=== PATIENT | female | born 1975 | race Caucasian/White ===

== ENCOUNTER 2020-05-17 15:32 | Outpatient (CLI) | payer BC, SELFPAY ==
--- NOTE | ~2020-05-17 | US_ITS ---
EXAMINATION: US pelvic complete w TV DATE: 05/17/2020 16:27 INDICATION: Excessive and frequent menstruation TECHNIQUE: Multiple transabdominal and endovaginal sonographic images of the pelvis were obtained. COMPARISON: None. FINDINGS: The uterus measures 11.2 x 4.4 x 5.6 cm. The endometrial complex measures 9 mm. The right o vary measures 2.2 x 1.4 x 1.6 cm. The left ovary measures 4.1 x 2.4 x 3.2 cm. There is normal vascula r flow in the ovaries. There is no free fluid in the pelvis. IMPRESSION: 1. No sonographic correlate for the patient's symptoms. Reviewed, dictated and finalized at location A.
== END 2020-05-17 15:33 | disposition home or self-care (01) ==
PROVIDERS: PCP Family Medicine; Visit Provider Obstetrics & Gynecology
DX: N92.0 Excessive and frequent menstruation with regular cycle (principal)
CPT/HCPCS: 76830; 76856

== ENCOUNTER 2022-05-19 01:13 | Day surgery (SDC) | payer OTHER, SELFPAY ==
[2022-05-11 08:46] VITALS: BMI 33.0
--- NOTE | 2022-05-11 08:55 | PC.NURSE ---
Report to the Outpatient Waiting Room, entrance under the green pavilion located off [facility], at time _0600_ on date _[id number]_. OR Time: _0730_. Time changes happen often and if your time is changed the preop area will call you the afternoon before. - You and your visitor will be asked to self-screen and do not enter if you have any COVID symptoms. - Only one visitor and NO children visitors are allowed at this time. - The patient visitor is requested to leave or wait in car when not with patient due to restrictions. - A mask is required within the hospital. Patients may have clear liquids (water, carbonated beverages, clear teas, apple juice) until 3 hours prior to surgery with a maximum of 20 ounces. - No food from midnight until time of surgery Take the following medications with a SIP of water the morning of surgery: ___Alprazolam Medications to discontinue per physician Multivitamin Date to take last rdoi___[phone] Please no make-up, nail afghan, hairspray, perfume, deodorant, or body powder the day of surgery. No jewelry (including any body piercings) or valuables the day of surgery, leave them at home. Please take a shower or bath the night before, or the morning of, surgery with an antibacterial soap. Wear comfortable, loose fitting clothing. - Jewelry must be removed prior to entering the operating room. Rings and piercings that are not removed may be cut off. - The hospital will not accept responsibility for valuables. - Please leave all valuables, including medications, at home the day of surgery. If you are going home after surgery, a licensed class b driver must drive you home. - NO public transportation without another adult. - We recommend that an adult stay with you for 24 hours following discharge. - We also recommend that you do not drive, make important decision, drink alcoholic beverages, or take any drugs that were not prescribed by your health care provider for at least 24 hours after your discharge time. Follow any additional instructions given to you from your surgeon. If you or anyone in your household have experienced Covid symptoms in the past week, please notify your surgeon or the nurse liaison at the phone number below for possible testing. Telephone instructions given to _Patient____and asked if any additional questions and then verbalized understanding. Patient advised to call surgeon office or pre surgery nurse liaison [phone] if any additional questions.
--- NOTE | 2022-05-18 10:29 | PM.IMHP ---
H&P: HPI History of Present Illness Date/Time: 05/18/22 10:29 Chief Complaint: Abnormal uterine bleeding Narrative: Patient is a 46yo woman with history of abnormal uterine bleeding. Patient was doing well initially following Mirena IUD insertion in 09/2021, however, developed persistent bleeding and spotting within a few months. She also developed postcoital spotting and requested IUD removal in 01/2022. Following removal, patient reported persistence of abnormal bleeding that eventually subsided. Alternative management options were discussed and patient declined all other medical management options. Decision made to proceed with endometrial ablation as next step in management. In general, patient doing well today without complaints. Review of Systems Review of Systems: All systems reviewed & are unremarkable except as noted in HPI and below Constitutional: Constitutional: Reports as per HPI and Reports no additional constitutional complaints Eyes: Eyes: Reports as per HPI and Reports no additional eye complaints ENT: Reports system reviewed and no additional complaints, except as documented and Reports as per HPI Cardiovascular: Cardiovascular: Reports as per HPI and Reports no additional cardiovascular complaints Respiratory: Respiratory: Reports as per HPI and Reports no additional respiratory complaints Gastrointestinal: Gastrointestinal: Reports as per HPI and Reports no additional gastrointestinal complaints Genitourinary: Genitourinary: Reports no additional female genitourinary complaints and Reports as per HPI Musculoskeletal: Musculoskeletal: Reports no additional musculoskeletal complaints and Reports as per HPI Integumentary/Breasts: Skin/Breast: Reports system reviewed and no additional complaints, except as docu and Reports as per HPI Neurologic: Reports system reviewed and no additional complaints, except as documented and Reports as per HPI Psychiatric: Psychiatric: Reports no additional psychiatric complaints and Reports as per HPI Endocrine: Endocrine: Reports no additional endocrine complaints and Reports as per HPI Hematologic/Lymphatic: Hematologic/Lymphatic: Reports no additional hematologic/lymphatic complaints and Reports as per HPI Allergic/Immunologic: Allergic/Immunologic: Reports no additional allergic/immunologic complaints and Reports as per HPI PMFSH Past Medical History Medical History Hyperlipidemia Migraines Mitral valve disorder Seasonal allergies Unprotected sexual intercourse Surgical History Surgical History History of section History of tonsillectomy Hx of LASIK [place] teeth extracted Family History Family History Mother Breast cancer Diabetes mellitus Hypertension Father Hypertension Hyperlipidemia Grandparent Carcinoma of colon Hypertension Hyperlipidemia Social History Social History Social History: Smoking status: Never smoker Second hand tobacco smoke exposure: No Alcohol intake: never Substance use: never Substance use type: does not use Gender identity (if verbalized by the patient): Female Sexual Orientation (if Verbalized by the Patient): Straight or Heterosexual Spiritual care concerns: No Meds Home Medications and Allergies Home Medications Medication Instructions Recorded Confirmed Type fexofenadine 180 mg tablet 180 mg PO DAILY 04/23/20 05/11/22 History (Shara Allergy) psyllium husk (with sugar) 3.4 1 tbsp PO DAILY 04/23/20 05/11/22 History gram/12 gram oral powder (Metamucil (with sugar)) aspirin 81 mg tablet,delayed 81 mg PO DAILY 05/17/21 05/11/22 History release simvastatin 20 mg tablet 20 mg PO DAILY #90 tabs 03/31/22 05/11/22 Rx alprazolam 0.25 mg tablet 0.25 mg PO BID #60 tabs 05/04/22 05/11/22 Rx multivitami
[2022-05-19 06:04] VITALS: BP 121/74; PULSE 74; RESP 16; TEMP 36.1; O2SAT 100
[2022-05-19] MEDS: ACETAMINOPHEN 500 MG TABLET 1000 MG PO (06:21)
--- NOTE | 2022-05-19 06:48 | WPDANESEPPF ---
Anes - Initial Pre Proc Eval Procedure: Operation Date: 05/19/22 07:30 Proposed Procedures p Hysteroscopy Dilation and Curettage, Loreta Endometrial Ablation, Possible Myosure - Chloe Rao MD Date/Time: 05/19/22 06:48 Surgeon: Chloe Rao MD Pre Op Diagnosis: Menorrhagia Patient Data Age: 46 Gender: F Height: 1.78 m Weight: 109.1 kg Last Vital Signs Temp 36.1 C L 05/19/22 06:04 Pulse 74 05/19/22 06:04 Resp 16 05/19/22 06:04 BP 121/74 05/19/22 06:04 Pulse Ox 100 05/19/22 06:04 O2 Del Method Room Air 05/19/22 06:04 Allergies Allergy/AdvReac Type Severity Reaction Status Date / Time cephalexin AdvReac Mild Nausea Verified 05/19/22 06:16 Home Medications Medication Instructions Recorded Confirmed Type fexofenadine 180 mg tablet 180 mg PO DAILY 04/23/20 05/19/22 History (Shara Allergy) psyllium husk (with sugar) 3.4 1 tbsp PO DAILY 04/23/20 05/19/22 History gram/12 gram oral powder (Metamucil (with sugar)) aspirin 81 mg tablet,delayed 81 mg PO DAILY 05/17/21 05/19/22 History release simvastatin 20 mg tablet 20 mg PO DAILY #90 tabs 03/31/22 05/19/22 Rx alprazolam 0.25 mg tablet 0.25 mg PO BID #60 tabs 05/04/22 05/19/22 Rx multivitamin with minerals-folic 1 tablet PO DAILY 05/11/22 05/19/22 History acid 200 mcg chewable tablet (Multivitamin Gummies) Patient hx anesthesia problems: other (shaking) Family hx anesthesia problems: none Results Review: All pre-operative results and documents have been reviewed as part of the pre-operative evaluation. [facility] Past Medical History Medical History Anxiety Hyperlipidemia Migraines Mitral valve disorder DAX (obstructive sleep apnea) Seasonal allergies Surgical History Surgical History History of section History of tonsillectomy Hx of LASIK [place] teeth extracted Family History Family History Mother Breast cancer Diabetes mellitus Hypertension Father Hypertension Hyperlipidemia Grandparent Carcinoma of colon Hypertension Hyperlipidemia Social History Social History Social History: Smoking status: Never smoker Second hand tobacco smoke exposure: No Alcohol intake: never Substance use: never Substance use type: does not use Living arrangements: with family Gender identity (if verbalized by the patient): Female Sexual Orientation (if Verbalized by the Patient): Straight or Heterosexual Spiritual care concerns: No Anes - Eval Final PreProcedure Day of Procedure 05/19/22 06:48 Patient weight: obese Heart: regular rate and rhythm Lungs: clear to auscultation Airway: Mallampati scale class II Neurological: alert and oriented Last oral intake: >/= 8 hours ASA classification: III Emergent: no Anesthetic plan: proceed Anesthesia type and monitoring: general GIVS and standard monitoring Results Review: All pre-operative results and documents have been reviewed as part of the pre-operative evaluation. Informed Consent: The patient's anesthetic plan and its attendant risks and benefits were discussed with the patient/family/POA. Questions were solicited and answers provided to the satisfaction of the patient/family/POA.
[2022-05-19] MEDS: LACTATED RINGERS 1,000 ML 30 ML IV CONT (07:00)
--- NOTE | 2022-05-19 07:22 | WPDHPUPDATE1 ---
History and Physical Update Update Date/Time: 05/19/22 07:22 History and Physical has been reviewed, including an updated exam of the patient. There are NO changes in the patient's condition. Risks, benefits, and alternatives have been discussed and questions answered. Patient agrees to proceed with procedure.
[2022-05-19] MEDS: KETOROLAC 30 MG/ML VIAL (*BKC) IV PUSH (07:35)
[2022-05-19] MEDS: LIDOCAINE HCL 1% PF 30 ML VIAL 10 ML INFILTRATE (07:41)
[2022-05-19 08:14] VITALS: BP 96/65; PULSE 75; RESP 16; O2SAT 95
--- NOTE | 2022-05-19 08:19 | W.PM.PROC2 ---
Procedure Note - Detailed Date of Procedure 05/19/22 Pre-op Diagnosis Menorrhagia Post-op Diagnosis Same Procedure Performed Hysteroscopy, dilation and curettage, endometrial ablation with Loreta Surgeon Chloe Rao MD Anesthesia MAC Findings patient on menses, endometrial cavity obscured with blood, right tubal ostia visualized, unable to visualize left tubal ostia, rest of cavity that was visualized appeared within normal limits Description of Procedure The patient was taken to the operating room where she self-transferred to the operating room table. She was placed in dorsal supine position. Anesthesia was administered and found to be adequate. The patient was repositioned in dorsal lithotomy position with the use of Levy stirrups. She was prepped and draped in usual sterile fashion. A red rubber catheter was used to drain the bladder of 150 cc of clear urine. A bivalve speculum was inserted into the vagina. The cervix was well visualized. The anterior lip of the cervix was grasped with a single-tooth tenaculum. A paracervical block was performed with 1% plain lidocaine. 5 cc of lidocaine was administered on either side for a total of 10 cc. The cervix was serially dilated to accommodate a hysteroscope. The hysteroscope was introduced into the endometrial cavity. A general survey was performed.? A large amount of blood was noted to be obscuring endometrial cavity as patient currently on menses. Endometrial cavity was flushed as much as possible. Visualized areas of the cavity appeared to be within normal limits. Right tubal ostia was seen, however, left tubal ostia was not. A few pictures were taken. The hysteroscope was removed. A medium-size rigid curette was used to perform a curettage. All quadrants of the endometrial cavity were explored. A moderate amount of tissue was obtained and prepared to be sent to pathology for analysis.? The Loreta endometrial ablation device was then opened on the sterile field. The appropriate settings were input on the hand-held device and the array was introduced into the endometrial cavity and deployed. The cervical balloon was insufflated.? An integrity check was completed and passed by the Loreta console. After the integrity check was passed successfully, the ablation procedure started automatically and ran for the preset time of 120 seconds. After completion of the ablation procedure, the array was collapsed and the cervical balloon was desufflated. The device was removed.? The tenaculum was removed from the anterior lip of the cervix. Minimal oozing from one of the tenaculum puncture sites was noted. This area was made hemostatic with silver nitrate. The remainder of the vagina was cleansed and dried and the speculum was removed. The patient was cleansed and dried and taken out of the dorsal lithotomy position. She was awakened from anesthesia without difficulty and transferred to the recovery room in stable condition.? The patient tolerated the procedure well.? All sponge, lap, and instrument counts were correct at the end of the procedure. Estimated Blood Loss 3 IV Fluids 700 Urine Output 150 Drains No Packing No Pathology Yes (endometrial curettings) Complications No immediate complications Condition Stable Disposition Same day [facility] Billing Surgery - Charge Forward: Surgery Billing
[2022-05-19 08:40] VITALS: BP 106/63; PULSE 65; RESP 16; O2SAT 99
[2022-05-19 09:10] VITALS: BP 118/77; PULSE 66; RESP 16
== END 2022-05-19 09:20 | disposition home or self-care (01) ==
PROVIDERS: PCP Family Medicine; Visit Provider Student in an Organized Health Care Education/Training Program
PROC: 0U5B8ZZ Destruction of Endometrium, Via Natural or Artificial Opening Endoscopic (ICD-10-PCS; CPT 58563; principal; 2022-05-19 07:30)
DX: N93.9 Abnormal uterine and vaginal bleeding, unspecified (principal); E78.5 Hyperlipidemia, unspecified
CPT/HCPCS: 58563; 88305; A9270; J1100; J1885; J2250; J2405; J2704; J3010; J7030; J7120

== ENCOUNTER 2022-07-03 16:17 | Outpatient (CLI) | payer OTHER, SELFPAY ==
--- NOTE | ~2022-07-03 | XR_ITS ---
XR shoulder LT min 2V DATE: 07/03/2022 17:28 INDICATION: Left shoulder pain for 2 months TECHNIQUE: 4 views COMPARISON: None FINDINGS: No fracture or dislocation, periosteal reaction or bone destruction or abnormal soft tissue calcification. Normal alignment at the acromioclavicular and glenohumeral joints. IMPRESSION: Negative Reviewed, dictated and finalized at location A. [facility] VERIFICATION SPECIALIST IMPRESSION: Negative
== END 2022-07-03 16:18 | disposition home or self-care (01) ==
PROVIDERS: PCP Family Medicine; Visit Provider Nurse Practitioner Gerontology
DX: M25.512 Pain in left shoulder (principal)
CPT/HCPCS: 73030

== ENCOUNTER 2023-04-20 02:34 | Day surgery (SDC) | payer OTHER, SELFPAY ==
[2023-04-04 13:48] VITALS: BMI 34.4
[2023-04-20 06:58] VITALS: BP 124/83; PULSE 85; RESP 18; TEMP 36.3; O2SAT 98; BMI 35.3
[2023-04-20] MEDS: LACTATED RINGERS 1,000 ML 150 ML IV CONT (07:01)
--- NOTE | 2023-04-20 07:32 | PM.HPGS ---
History of Present Illness History of Present Illness Consent: Risks, benefits, and alternatives have been discussed and questions answered. Patient agrees to proceed with procedure. Chief complaint: neoplasm screening Narrative: Judy Brody is a 47 year old female Presents for screening colonoscopy. Patient's current weight appetite and bowel movements are normal. Patient denies abdominal pain. She has had no bleeding. She does note occasional soft stools over last 2 months. She denies any bleeding. Family history is noncontributory. No first-degree relatives have polyps or cancer of the colon. Review of Systems Review of Systems: Review of systems noncontributory. [facility] Past Medical History Medical History Anxiety Hyperlipidemia Migraines Mitral valve disorder DAX (obstructive sleep apnea) Seasonal allergies Surgical History Surgical History History of section History of dilation and curettage History of endometrial ablation History of hysteroscopy History of tonsillectomy Hx of LASIK [place] teeth extracted Family History Family History Mother Breast cancer Diabetes mellitus Hypertension Father Hypertension Hyperlipidemia Grandparent Carcinoma of colon Hypertension Hyperlipidemia Social History Social History (Updated 03/16/23 @ 08:32 by Adia Covarrubias MA) Social History: Smoking status: Never smoker Second hand tobacco smoke exposure: No Alcohol intake: never Substance use: never Substance use type: does not use Lack of Transportation: No Lack of Food: Never True Current Housing: I Have Housing Concerned About Future Housing: No Difficulty Paying Gas/Electric Bills: No Difficulty Paying for Meds: No Currently Unemployed: No Education: Master's Degree or Higher Difficulty w/ Childcare or Family Care: No Living arrangements: with family Occupation/Education: occupation Gender identity (if verbalized by the patient): Female Sexual Orientation (if Verbalized by the Patient): Straight or Heterosexual Spiritual care concerns: No Meds Home Medications and Allergies Home Medications Medication Instructions Recorded Confirmed Type fexofenadine 180 mg tablet 180 mg PO DAILY 04/23/20 04/20/23 History (Shara Allergy) aspirin 81 mg tablet,delayed 81 mg PO DAILY 05/17/21 04/20/23 History release multivitamin with minerals-folic 1 tablet PO DAILY 05/11/22 04/20/23 History acid 200 mcg chewable tablet (Multivitamin Gummies) alprazolam 0.25 mg tablet 0.25 mg PO DAILY PRN anxiety #30 01/17/23 04/20/23 Rx tabs simvastatin 20 mg tablet See Rx Instructions .Route 03/07/23 04/20/23 Rx .COMPLEX #90 tabs Allergies Allergy/AdvReac Type Severity Reaction Status Date / Time cephalexin AdvReac Mild Nausea Verified 04/20/23 06:57 Vital Signs Vital Signs - 24 hr 04/20/23 06:58 Temperature 97.3 F L Pulse Rate 85 Respiratory Rate 18 Blood Pressure 124/83 Pulse Oximetry 98 Oxygen Delivery Room Air Exam Narrative: Physical exam reveals patient to be alert. Vital signs stable. HEENT exam is unremarkable. Patient is anicteric. Lungs are clear to auscultation and percussion. Heart is without murmur or extra sounds. Abdomen bowel sounds are present soft nontender with no organomegaly. Digital external rectal exam is normal. Assessment and Plan Assessment and plan (1) Colon cancer screening: Code(s): Z12.11 - Encounter for screening for malignant neoplasm of colon Status: Acute Assessment and Plan: Patient presents for screening colonoscopy. She appears to be at average risk for colon polyps. Because of intermittent loose stools recommend fiber supplementation such as Metamucil daily.
--- NOTE | 2023-04-20 07:38 | WPDANESEPPF ---
Anes - Initial Pre Proc Eval Procedure: Operation Date: 04/20/23 08:00 Proposed Procedures p Screening Colonoscopy - Harjinder Gregory MD Date/Time: 04/20/23 07:38 Surgeon: Harjinder Gregory MD Pre Op Diagnosis: neoplasm screening Patient Data Age: 47 Gender: F Height: 1.78 m Weight: 111.6 kg Last Vital Signs Temp 97.3 F L 04/20/23 06:58 Pulse 85 04/20/23 06:58 Resp 18 04/20/23 06:58 BP 124/83 04/20/23 06:58 Pulse Ox 98 04/20/23 06:58 O2 Del Method Room Air 04/20/23 06:58 Allergies Allergy/AdvReac Type Severity Reaction Status Date / Time cephalexin AdvReac Mild Nausea Verified 04/20/23 06:57 Home Medications Medication Instructions Recorded Confirmed Type fexofenadine 180 mg tablet 180 mg PO DAILY 04/23/20 04/20/23 History (Shara Allergy) aspirin 81 mg tablet,delayed 81 mg PO DAILY 05/17/21 04/20/23 History release multivitamin with minerals-folic 1 tablet PO DAILY 05/11/22 04/20/23 History acid 200 mcg chewable tablet (Multivitamin Gummies) alprazolam 0.25 mg tablet 0.25 mg PO DAILY PRN anxiety #30 01/17/23 04/20/23 Rx tabs simvastatin 20 mg tablet See Rx Instructions .Route 03/07/23 04/20/23 Rx .COMPLEX #90 tabs Patient hx anesthesia problems: none Family hx anesthesia problems: none Results Review: All pre-operative results and documents have been reviewed as part of the pre-operative evaluation. [facility] Past Medical History Medical History Anxiety Hyperlipidemia Migraines Mitral valve disorder DAX (obstructive sleep apnea) Seasonal allergies Surgical History Surgical History History of section History of dilation and curettage History of endometrial ablation History of hysteroscopy History of tonsillectomy Hx of LASIK [place] teeth extracted Family History Family History Mother Breast cancer Diabetes mellitus Hypertension Father Hypertension Hyperlipidemia Grandparent Carcinoma of colon Hypertension Hyperlipidemia Social History Social History (Updated 03/16/23 @ 08:32 by Adia Covarrubias MA) Social History: Smoking status: Never smoker Second hand tobacco smoke exposure: No Alcohol intake: never Substance use: never Substance use type: does not use Lack of Transportation: No Lack of Food: Never True Current Housing: I Have Housing Concerned About Future Housing: No Difficulty Paying Gas/Electric Bills: No Difficulty Paying for Meds: No Currently Unemployed: No Education: Master's Degree or Higher Difficulty w/ Childcare or Family Care: No Living arrangements: with family Occupation/Education: occupation Gender identity (if verbalized by the patient): Female Sexual Orientation (if Verbalized by the Patient): Straight or Heterosexual Spiritual care concerns: No Anes - Eval Final PreProcedure Day of Procedure 04/20/23 07:38 Patient weight: obese Heart: regular rate and rhythm Lungs: clear to auscultation Airway: Mallampati scale class II Neurological: alert and oriented Last oral intake: >/= 8 hours ASA classification: II Emergent: no Anesthetic plan: proceed Anesthesia type and monitoring: general GIVS and standard monitoring Results Review: All pre-operative results and documents have been reviewed as part of the pre-operative evaluation. Informed Consent: The patient's anesthetic plan and its attendant risks and benefits were discussed with the patient/family/POA. Questions were solicited and answers provided to the satisfaction of the patient/family/POA.
[2023-04-20 08:21] VITALS: BP 83/31; PULSE 73; RESP 18; O2SAT 100
[2023-04-20 08:31] VITALS: BP 105/58; PULSE 74; RESP 18; O2SAT 99
[2023-04-20 08:41] VITALS: BP 107/51; PULSE 68; RESP 18; O2SAT 97
== END 2023-04-20 08:49 | disposition home or self-care (01) ==
PROVIDERS: PCP Family Medicine; Visit Provider Internal Medicine Gastroenterology
PROC: 0DJD8ZZ Inspection of Lower Intestinal Tract, Via Natural or Artificial Opening Endoscopic (ICD-10-PCS; CPT 45378; principal; 2023-04-20 08:00)
DX: Z12.11 Encounter for screening for malignant neoplasm of colon (principal); K64.8 Other hemorrhoids; E78.5 Hyperlipidemia, unspecified; G47.33 Obstructive sleep apnea (adult) (pediatric); F41.9 Anxiety disorder, unspecified; Z79.82 Long term (current) use of aspirin; E66.9 Obesity, unspecified; Z68.35 Body mass index [BMI] 35.0-35.9, adult
CPT/HCPCS: 45378; J2704; J7120

== ENCOUNTER 2023-05-15 08:00 | Outpatient (CLI) | payer OTHER, SELFPAY ==
--- NOTE | 2023-05-15 08:14 | ECG_ITS ---
Measurements Intervals [place] Rate: 78 P: 45 VT: 197 QRS: 60 QRSD: 112 T: 38 QT: 371 QTc: 424 Interpretive Statements SINUS RHYTHM MODERATE INTRAVENTRICULAR CONDUCTION DELAY [110+ ms QRS DURATION] NO PREVIOUS ECG AVAILABLE FOR COMPARISON Electronically Signed On 05-15-2023 12:35:57 CDT by Elham Weaver M.D.
== END 2023-05-15 08:01 | disposition home or self-care (01) ==
LOC: ANHSURGERY 08:05
PROVIDERS: PCP Family Medicine; Visit Provider Obstetrics & Gynecology
DX: N92.0 Excessive and frequent menstruation with regular cycle (principal); E78.5 Hyperlipidemia, unspecified; Z01.818 Encounter for other preprocedural examination; I45.9 Conduction disorder, unspecified
CPT/HCPCS: 36415; 86850; 86900; 86901; 93005

== ENCOUNTER 2023-05-18 00:41 | Day surgery (SDC) | payer OTHER, SELFPAY ==
[2023-05-09 10:23] VITALS: BMI 34.4
--- NOTE | 2023-05-09 10:24 | PC.NURSE ---
Report to the Outpatient Waiting Room, entrance under the green pavilion located off [facility], at time _0600_ on date _[id number]_. Planned Procedure Time: _0730_. Time changes happen often and if your time is changed the preop area will call you the afternoon before. - You and your visitor will be asked to self-screen and do not enter if you have any COVID symptoms. - A mask is optional within the hospital at this time. Patients may have clear liquids (water, carbonated beverages, clear teas, apple juice) until 3 hours prior to surgery with a maximum of 20 ounces. - No food from midnight until time of surgery Take the following medications with a SIP of water the morning of surgery: __Xanax if needed. DO NOT STOP ANY OF YOUR OTHER PRESCRIPTION MEDICATIONS PRIOR TO SURGERY ?EXCEPT THE FOLLOWING Medications to discontinue per physician Multivitamin Date to take last xflv__[id number] Patient stopped Aspirin 05-07-2023 Please no make-up, nail turkish, hairspray, perfume, deodorant, or body powder the day of surgery. No jewelry (including any body piercings) or valuables the day of surgery, leave them at home. Please take a shower or bath the night before, or the morning of, surgery with an antibacterial soap. Wear comfortable, loose fitting clothing. - Jewelry must be removed prior to entering the operating room. Rings and piercings that are not removed may be cut off. - The hospital will not accept responsibility for valuables. - Please leave all valuables, including medications, at home the day of surgery. If you are going home after surgery, a licensed bull driver must drive you home. - NO public transportation without another adult if you receive anesthesia. - We recommend that an adult stay with you for 24 hours following discharge. - We also recommend that you do not drive, make important decision, drink alcoholic beverages, or take any drugs that were not prescribed by your health care provider for at least 24 hours after your discharge time. Follow any additional instructions given to you from your surgeon. If you or anyone in your household have experienced Covid symptoms in the past week, please notify your surgeon or the nurse liaison at the phone number below for possible testing. Telephone instructions given to _Patient__and asked if any additional questions and then verbalized understanding. Patient advised to call surgeon office or pre surgery nurse liaison [phone] if any additional questions.
--- NOTE | 2023-05-17 18:39 | PM.IMHP ---
H&P: HPI History of Present Illness Date/Time: 05/17/23 18:39 Chief Complaint: Abnormal bleeding Narrative: She has a history of menorrhagia since 2019. She has tried IUD and had irregular and postcoital bleeding. IUD was removed and she then had endometrial ablation. The endometrial currettage at that time was benign. She has continued to have abnormal vaginal bleeding especially post coital bleeding. She does not want to do any hormonal options. She wants definitive treatment with hysterectomy. She does not have any significant perimenopausal symptoms. Review of Systems Review of Systems: All systems reviewed & are unremarkable except as noted in HPI and below Cardiovascular: Cardiovascular: Reports no additional cardiovascular complaints, Denies chest pain and Denies dyspnea Respiratory: Respiratory: Reports no additional respiratory complaints and Denies dyspnea Gastrointestinal: Gastrointestinal: Reports abdominal pain, Denies change in bowel habits, Denies diarrhea, Denies nausea and Denies vomiting Genitourinary: Genitourinary: Reports pelvic pain Musculoskeletal: Musculoskeletal: Reports back pain Integumentary/Breasts: Skin/Breast: Reports system reviewed and no additional complaints, except as docu Neurologic: Reports system reviewed and no additional complaints, except as documented PMFSH Past Medical History Medical History Anxiety Hyperlipidemia Migraines Mitral valve disorder DAX (obstructive sleep apnea) Seasonal allergies Surgical History Surgical History History of section History of dilation and curettage History of endometrial ablation History of hysteroscopy History of tonsillectomy Hx of LASIK Cl[place] teeth extracted Family History Family History Mother Breast cancer Diabetes mellitus Hypertension Father Hypertension Hyperlipidemia Grandparent Carcinoma of colon Hypertension Hyperlipidemia Social History Social History Social History: Smoking status: Never smoker Second hand tobacco smoke exposure: No Alcohol intake: never Substance use: never Substance use type: does not use Lack of Transportation: No Lack of Food: Never True Current Housing: I Have Housing Concerned About Future Housing: No Difficulty Paying Gas/Electric Bills: No Difficulty Paying for Meds: No Currently Unemployed: No Education: Master's Degree or Higher Difficulty w/ Childcare or Family Care: No Living arrangements: with family Occupation/Education: occupation Gender identity (if verbalized by the patient): Female Sexual Orientation (if Verbalized by the Patient): Straight or Heterosexual Spiritual care concerns: No Meds Home Medications and Allergies Home Medications Medication Instructions Recorded Confirmed Type fexofenadine 180 mg tablet 180 mg PO DAILY 04/23/20 05/16/23 History (Shara Allergy) aspirin 81 mg tablet,delayed 81 mg PO DAILY 05/17/21 05/16/23 History release multivitamin with minerals-folic 1 tablet PO DAILY 05/11/22 05/16/23 History acid 200 mcg chewable tablet (Multivitamin Gummies) alprazolam 0.25 mg tablet 0.25 mg PO DAILY PRN anxiety #30 01/17/23 05/16/23 Rx tabs simvastatin 20 mg tablet See Rx Instructions .Route 03/07/23 05/16/23 Rx .COMPLEX #90 tabs metronidazole 1.3 % (65 mg/5 gram) 1 appful vaginal QHS 1 dose #5 05/08/23 05/09/23 Rx vaginal gel (Nuvessa) grams psyllium 1 packet PO HS 05/09/23 05/09/23 History Allergies Allergy/AdvReac Type Severity Reaction Status Date / Time cephalexin AdvReac Mild Nausea Verified 05/09/23 10:16 Exam Const: Orientation/consciousness: oriented to person and oriented to place HENMT: Head: normal to inspection
[2023-05-18] VITALS (13 sets, daily range): BP systolic 105–135; BP diastolic 51–83; PULSE 70–98; RESP 10–48; TEMP 36.6–37.1; O2SAT 97–99
--- NOTE | 2023-05-18 06:48 | WPDANESEPPF ---
Anes - Initial Pre Proc Eval Procedure: Operation Date: 05/18/23 07:30 Proposed Procedures p Robotic Laparoscopic Total Vaginal Hysterectomy with Bilateral Salpingectomy - Campbell Dickinson MD Date/Time: 05/18/23 06:48 Surgeon: Campbell Dickinson MD Pre Op Diagnosis: abnormal uterine bleeding Patient Data Age: 47 Gender: F Height: 1.78 m Weight: 109 kg Allergies Allergy/AdvReac Type Severity Reaction Status Date / Time cephalexin AdvReac Mild Nausea Verified 05/09/23 10:16 Home Medications Medication Instructions Recorded Confirmed Type fexofenadine 180 mg tablet 180 mg PO DAILY 04/23/20 05/16/23 History (Shara Allergy) aspirin 81 mg tablet,delayed 81 mg PO DAILY 05/17/21 05/16/23 History release multivitamin with minerals-folic 1 tablet PO DAILY 05/11/22 05/16/23 History acid 200 mcg chewable tablet (Multivitamin Gummies) alprazolam 0.25 mg tablet 0.25 mg PO DAILY PRN anxiety #30 01/17/23 05/16/23 Rx tabs simvastatin 20 mg tablet See Rx Instructions .Route 03/07/23 05/16/23 Rx .COMPLEX #90 tabs metronidazole 1.3 % (65 mg/5 gram) 1 appful vaginal QHS 1 dose #5 05/08/23 05/09/23 Rx vaginal gel (Nuvessa) grams psyllium 1 packet PO HS 05/09/23 05/09/23 History Patient hx anesthesia problems: none Family hx anesthesia problems: none Results Review: All pre-operative results and documents have been reviewed as part of the pre-operative evaluation. [facility] Past Medical History Medical History Anxiety Hyperlipidemia Migraines Mitral valve disorder DAX (obstructive sleep apnea) Seasonal allergies Surgical History Surgical History History of section History of dilation and curettage History of endometrial ablation History of hysteroscopy History of tonsillectomy Hx of LASIK Horner teeth extracted Family History Family History Mother Breast cancer Diabetes mellitus Hypertension Father Hypertension Hyperlipidemia Grandparent Carcinoma of colon Hypertension Hyperlipidemia Social History Social History Social History: Smoking status: Never smoker Second hand tobacco smoke exposure: No Alcohol intake: never Substance use: never Substance use type: does not use Lack of Transportation: No Lack of Food: Never True Current Housing: I Have Housing Concerned About Future Housing: No Difficulty Paying Gas/Electric Bills: No Difficulty Paying for Meds: No Currently Unemployed: No Education: Master's Degree or Higher Difficulty w/ Childcare or Family Care: No Living arrangements: with family Occupation/Education: occupation Gender identity (if verbalized by the patient): Female Sexual Orientation (if Verbalized by the Patient): Straight or Heterosexual Spiritual care concerns: No Anes - Eval Final PreProcedure Day of Procedure 05/18/23 06:48 Patient weight: obese Heart: regular rate and rhythm Lungs: clear to auscultation Airway: Mallampati scale class II Neurological: alert and oriented Last oral intake: >/= 8 hours ASA classification: III Emergent: no Anesthetic plan: proceed Anesthesia type and monitoring: general ETT and standard monitoring Results Review: All pre-operative results and documents have been reviewed as part of the pre-operative evaluation. Informed Consent: The patient's anesthetic plan and its attendant risks and benefits were discussed with the patient/family/POA. Questions were solicited and answers provided to the satisfaction of the patient/family/POA.
[2023-05-18] MEDS: LACTATED RINGERS 1,000 ML 30 ML IV CONT ×2 (07:00→10:30)
[2023-05-18] MEDS: ACETAMINOPHEN 500 MG TABLET 1000 MG PO (07:00)
[2023-05-18] MEDS: SCOPOLAMINE 1.5 MG PATCH TRANSDERM (07:00)
[2023-05-18] MEDS: KETOROLAC 15 MG/ML VIAL (*BKC) IV PUSH (07:00)
--- NOTE | 2023-05-18 07:25 | WPDHPUPDATE1 ---
History and Physical Update Update Date/Time: 05/18/23 07:25 History and Physical has been reviewed, including an updated exam of the patient. There are NO changes in the patient's condition. Risks, benefits, and alternatives have been discussed and questions answered. Patient agrees to proceed with procedure.
[2023-05-18] MEDS: metroNIDAZOLE 500 MG/ISO 100ML 500 MG/100 ML BAG 100 MG IVPB (07:32)
[2023-05-18] MEDS: ceFAZolin 2 GM/D5W 50 ML 2 GM/50 ML BAG IVPB (07:32)
[2023-05-18] MEDS: BUPivacaine HCL 0.5% 10 ML AMP 20 ML INFILTRATE (08:27)
--- NOTE | 2023-05-18 10:22 | PM.OP ---
Procedure Note - Brief Procedure Note - Brief Date of procedure: 05/18/23 abnormal uterine bleeding Post-op diagnosis: Same Procedure performed: 1. Laparoscopic robotic assisted total vaginal hysterectomy with bilateral salpingectomy. 2. Lysis of adhesions 3. Cystoscopy Surgeon: Campbell Dickinson MD Anesthesia: GETA Findings: Normal retroverted uterus, normal ovaries bilateral, small corpus luteum cyst on the right ovary, adhesions of the left ovary to bra[place] intestinal fat, normal bladder, efflux noted bilateral from ureteral orifi Estimated blood loss (mL): 50 Urine output (mL): 300 Drains: No Packing: No Pathology: Yes (uterus with cervix, right and left fallopian tube) Complications: No immediate complications Condition: Stable Disposition: PACU
--- NOTE | 2023-05-18 10:25 | W.PM.PROC2 ---
Procedure Note - Detailed Date of Procedure 05/18/23 Pre-op Diagnosis abnormal uterine bleeding Post-op Diagnosis Same Procedure Performed 1. Laparoscopic robotic assisted total hysterectomy with bilateral salpingectomy 2. Lysis of adhesions 3. Cystoscopy Surgeon Campbell Dickinson MD Anesthesia General Indications Long history of menometrorrhagia resistant to endometrial ablation she requests definitive treatment with hysterectomy Findings Uterus sound to 8 cm scarring palpated consistent with prior ablation, uterus normal size ovaries were normal bilaterally small corpus luteum cyst on the right side normal fallopian tubes bilaterally there was some scarring of the left ovary to the left pelvic sidewall and bra[place] intestinal fat which adhesions were lysed to assure mobility of the left ovary otherwise the ovary was normal. Normal right ovary. Cystoscopy normal there was jetting from both ureteral orifi. Description of Procedure After informed consent was obtained she was taken to the operating room and general endotracheal anesthesia was administered. She was placed in low lithotomy position. An exam under anesthesia was performed. Uterus normal size retroverted, no adnexal masses palpated. She was and prepped and draped in sterile fashion. Varner catheter placed in bladder. Attention was turned to the vagina speculum was inserted. Single-tooth tenaculum placed on anterior lip of the cervix the uterus sounded to 8 cm. The cervix was dilated to a 8 Frias dilator. A size 6 uterine manipulator was eventually secured. Did have to try several dilators due to the manipulator not being able to fit completely into the uterine cavity. The cervix was noted to be long but the uterine cavity was scarred. A size 3.5 colp cup was secured in the vagina. Then attention was turned to the abdomen with new sterile gloves. .5% marcaine injected subcutaneously. An incision was made horizontal 2 cm above the umbilicus. A Veress needle was inserted into the abdomen confirmation into the abdomen was obtained with normal free flow of fluid and normal peritoneal pressure. A Pneumoperitoneum of 15 mm per mercury was obtained. No abdominal or pelvic adhesions noted. A small incision was made approximately 8 cm lateral to the port on the left side of the port. A size 8mm robotic port was inserted under laparoscopic visualization into the abdomen on the left side. Attention was turned to the right side of the abdomen an incision was made and another 8 mm robotic port was inserted under laparoscopic visualization. Superior and medial to this an incision was made and the construction management assistant port 10 mm was inserted under laparoscopic visualization. Prior to making each incision 0.5% Marcaine was injected subcutaneously. Patient was placed in Trendelenburg position to allow for the intestinal tissue to come up out of the cul-de-sac adequately. After this was done then the manipulator of the uterus had to be changed and once this was done to allow for manipulation of the uterus then the robotic arms were attached. Attention was turned to the surgery consult. Attention was turned to the right round ligament which was ligated with vessel sealer. The anterior leaf of the broad ligament on the right was dissected anteriorly dissecting the vesicouterine peritoneum dissecting the bladder from the lower uterine segment. The right side of the bladder was dissected from the lower uterine segment and upper cervix. The right ovarian ligament was ligated with the vessel sealer. The a posterior leaf of the broad ligament was further dissected. The ascending uterine vessels were ligated. The uterine artery were ligated. Attention was turned to the left round ligament which was somewhat adhesed to the left fallopian tube and the left fallopian tube had some adhesions to the left ovary. The left ovary distally was adhesed to the left sidewall and also some adhesions to braed[place] intestinal adipose tissue. T
--- NOTE | 2023-05-18 10:26 | PM.DS ---
DS: Admitting Diagnosis Discharge Date 05/19/23 Admitting Diagnosis Menorrhagia DS: Discharge Diagnosis Discharge Diagnosis Plan Status post hysterectomy DS: Summary Hospital Course Reason for hospitalization: Scheduled laparoscopic robotic assisted hysterectomy. Hospital Course: She was admitted for robotic laparoscopic hysterectomy she underwent an uncomplicated total vaginal hysterectomy and bilateral salpingectomy. Postoperatively she did well. She had adequate pain control. She was ambulating and tolerating regular food. Status at Discharge Functional status at discharge: independent ambulation Time Spent with Patient Time attestation: Total time spent providing and/or coordinating discharge services: Exam Const: General: comfortable Eyes: General: appearance normal, both eyes and all related structures Resp: Effort & Inspection: normal respiratory effort GI: Other: Incisions intact. Appropriate tenderness. Skin: General skin exam: normal color Neuro: General: oriented to person, oriented to place and oriented to time Extrem: General: normal to inspection and no calf tenderness DS: Data Data Completed and Pending Pending studies at discharge: Pending at discharge 05/18/23 09:47 Surgical [PTH] Routine Discharge Plan Discharge Patient Disposition: Home, Self-Care Discharge Instructions: Ok to shower; keep incisions open to air. No heavy lifting >10 lbs for 6 weeks. Nothing in the vagina for 6 weeks. Patient Instructions: Laparoscopic Hysterectomy (DC) Stand Alone Forms: General Discharge Instructions Follow-up/Referrals: Campbell Dickinson MD [Physician] - Keep Reg. Scheduled Appt. Discharge Medications: New hydrocodone-acetaminophen 5-325 mg Tablet 1 tablet PO Q3H PRN (Reason: Pain Rated 5 Or greater) Qty: 20 0RF docusate sodium [Colace] 100 mg capsule 100 mg PO BID Qty: 120 0RF ondansetron 4 mg tablet,disintegrating 4 mg PO Q6H PRN (Reason: nausea and vomiting) Qty: 20 0RF Continued aspirin 81 mg tablet,delayed release (DR/EC) 81 mg PO DAILY alprazolam 0.25 mg tablet 0.25 mg PO DAILY PRN (Reason: anxiety) Qty: 30 0RF fexofenadine [Shara Allergy] 180 mg tablet 180 mg PO DAILY Metamucil Packet 1 packet PO HS Rx Instructions: mix into at least 8 oz of water or juice before administering Multivitamin Gummies 200 mcg Tablet,Chewable 1 tablet PO DAILY simvastatin 20 mg tablet See Rx Instructions .ROUTE .COMPLEX Qty: 90 1RF Dose Instruction: TAKE 1 TABLET BY MOUTH DAILY Rx Instructions: TAKE 1 TABLET BY MOUTH DAILY Discontinued Nuvessa 1.3 % (65 mg/5 gram) gel 1 appful vaginal QHS Qty: 5 0RF No Action Digestive Advantage Prob Gummy 250 million cell tablet,chewable PO
[2023-05-18] MEDS: ONDANSETRON INJ 4 MG/2 ML VIAL IV PUSH (11:54)
--- NOTE | 2023-05-18 12:05 | SUR.PHASEI ---
1145 - pt continues to c/o pressure in bladder.
[2023-05-18] MEDS: fentaNYL CITRATE INJ (*CRX) 100 MCG/2 ML VIAL 25 MCG IV PUSH (12:12)
--- NOTE | 2023-05-18 12:37 | SUR.PHASEI ---
1200 bladder scanned., empty. Fentanyl given for pain.
[2023-05-18] MEDS: KETOROLAC 30 MG/ML VIAL (*BKC) IV PUSH (13:26)
[2023-05-18] MEDS: SODIUM CHLORIDE 0.9% IV 1,000 ML 125 ML IV CONT (13:27)
--- NOTE | 2023-05-18 14:04 | ADMGEN ---
1235-This patient, Judy Brody, was admitted to OB 2nd Floor Room 292-00. Patient/family oriented to hospital policies and general routines including ID bracelet, bed and alarms, visiting hours, pain management, procedures, bathroom and other care routines, personal items, smoking policy, room service/diet, and visiting hours. Information on how to activate the Rapid Response Team has been discussed. Patient/Family are encouraged to report perceived risks to care and to ask questions if they do not understand what they are told or what they should do.
--- NOTE | 2023-05-18 14:33 | PM.GYNPNOP ---
UNDERGROUND MINING SECTION FOREMAN - A/P Postoperative Procedures: Procedures Operation Date: 05/18/23 07:30 Actual Procedure Side Surgeon p Robotic Laparoscopic Total Vaginal Hysterectomy with Bilateral Salpingectomy Bilateral Campbell Dickinson MD Time Spent With Patient Time: Total time spent is greater than 50% in coordination of care (as documented) at patient's floor/unit and/or counseling patient: Time with patient: less than 15 minutes UNDERGROUND MINING SECTION FOREMAN- PN:Subj Post-Op Subjective Date/time seen: 05/18/23 14:33 Interval history: She is resting well, discussed her surgery with her, vitals stable, she is comfortable, mild nausea. Will add Reglan. She is aware Dr. Ewing will see her tomorrow. UNDERGROUND MINING SECTION FOREMAN - PN: Obj Data Vital Signs Vital Signs: Vital Signs - 24 hr 05/18/23 07:24 05/18/23 10:30 05/18/23 10:45 Temperature 98.3 F 98.1 F Pulse Rate 98 87 87 Respiratory Rate 14 10 L 16 Blood Pressure 135/83 105/67 108/61 Pulse Oximetry 98 99 99 Oxygen Delivery Room Air Simple Face Mask Simple Face Mask Oxygen Flow Rate 7 5 05/18/23 11:00 05/18/23 11:15 05/18/23 11:30 Temperature Pulse Rate 78 73 76 Respiratory Rate 16 16 16 Blood Pressure 109/62 110/61 126/51 L Pulse Oximetry 99 99 99 Oxygen Delivery Simple Face Mask Simple Face Mask Room Air Oxygen Flow Rate 5 5 05/18/23 11:45 05/18/23 12:00 05/18/23 12:15 Temperature Pulse Rate 75 73 70 Respiratory Rate 16 16 16 Blood Pressure 116/68 127/72 130/71 Pulse Oximetry 97 97 97 Oxygen Delivery Room Air Room Air Room Air Oxygen Flow Rate 05/18/23 12:37 05/18/23 13:00 Temperature 98 F Pulse Rate 74 74 Respiratory Rate 16 16 Blood Pressure 109/53 L Pulse Oximetry 98 98 Oxygen Delivery Room Air Oxygen Flow Rate Intake/Output Intake/Output: Intake & Output 05/15/23 05/16/23 05/17/23 05/18/23 23:59 23:59 23:59 23:59 Intake Total 850 Output Total 875 Balance -25 Meds/Results Medications: Active Medications Generic Name Dose Route Start Last Admin Trade Name Freq PRN Reason Stop Dose Admin Hydrocodone Bitart/Acetaminophen 1 tab 05/18/23 10:16 Hydrocodone/Acetaminophen (*Crx) 5-325 Mg Tablet PO Q3H PRN Pain Rated 5 or Less Hydrocodone Bitart/Acetaminophen 1 tab 05/18/23 10:16 Hydrocodone/Acetaminophen (*Crx) 10-325 Mg Tablet PO Q3H PRN Pain Rated 6 or Greater Alprazolam 0.25 mg 05/18/23 10:20 Alprazolam (*Crx) 0.25 Mg Tablet PO DAILY PRN anxiety Diphenhydramine HCl 25 mg 05/18/23 06:49 Diphenhydramine Hcl Inj 50 Mg/Ml Vial IV PUSH ONCE PRN Pruritis/Nausea Sodium Chloride 1,000 mls @ 125 mls/hr 05/18/23 13:20 05/18/23 13:27 Normal Saline Iv IV CONT 125 mls/hr .Q8H LIBORIO Administration Ketorolac Tromethamine 30 mg 05/18/23 10:16 05/18/23 13:26 Ketorolac 30 Mg/Ml Vial (*Bkc) IV PUSH 05/23/23 10:15 30 mg Q6H PRN Administration Pain Rated 4-6 Ketorolac Tromethamine 30 mg 05/18/23 10:19 Ketorolac 30 Mg/Ml Vial (*Bkc) IM Q6H PRN Pain Rated 4-6 Loratadine 10 mg 05/19/23 09:00 Loratadine 10 Mg Tablet PO 06/18/23 08:59 DAILY [facility] Miscellaneous Information 1 each 05/18/23 10:45 Ketorolac Im Has Duplicate Prn Indication As Ketorolac Iv. Max Dose Of Ketorolac Is 120 Mg XX 06/17/23 10:44 CLARIFY [facility] Morphine Sulfate 4 mg 05/18/23 10:16 Morphine Sulfate (*Crx) 4 Mg/Ml Inj IV PUSH Q4H PRN Severe breakthrough pain Naloxone HCl 0.1 mg 05/18/23 10:16 Naloxone Hcl 0.4 Mg/Ml Vial IV PUSH Q2M PRN Respiratory rate less than 10 Ondansetron HCl 4 mg 05/18/23 10:16 Ondansetron Inj 4 Mg/2 Ml Vial IV PUSH Q6H PRN Nausea And Vomiting Senna/Docusate Sodium 2 tab 05/18/23 21:00 Senna/Docusate Sodium Tablet PO HS LIBORIO Simethicone 80 mg 05/18/23 10:16 Simethicone 80 Mg Tab.Chew PO Q2H PRN Gas Simvastatin 20 mg 05/19/23 09:00 Simvastatin 20 Mg Tablet PO QAM
[2023-05-18] MEDS: METOCLOPRAMIDE HCL INJ 10 MG/2 ML VIAL 5 MG IV PUSH (15:26)
[2023-05-18] MEDS: SENNA/DOCUSATE SODIUM TABLET 2 TAB PO (19:40)
[2023-05-18] MEDS: HYDROcodone/acetaminophen (*CRX) 5-325 MG TABLET 1 TAB PO ×2 (19:40→23:15)
[2023-05-18] MEDS: SIMETHICONE 80 MG TAB.CHEW PO (19:41)
[2023-05-19 05:16] VITALS: BP 101/57; PULSE 81; RESP 18; TEMP 37.3; O2SAT 98
[2023-05-19] MEDS: LORATADINE 10 MG TABLET PO (08:22)
[2023-05-19] MEDS: HYDROcodone/acetaminophen (*CRX) 5-325 MG TABLET 1 TAB PO (08:22)
[2023-05-19] MEDS: SIMVASTATIN 20 MG TABLET PO (08:22)
[2023-05-19 08:30] VITALS: BP 120/75; PULSE 78; RESP 16; TEMP 36.7; O2SAT 100
--- NOTE | 2023-05-19 08:50 | PM.GYNPNOP ---
JEWELRY SALES COORDINATOR - A/P Assessment and plan (1) S/P laparoscopic hysterectomy: Code(s): Z90.710 - Acquired absence of both cervix and uterus Status: Acute Postoperative Procedures: Procedures Operation Date: 05/18/23 07:30 Actual Procedure Side Surgeon p Robotic Laparoscopic Total Vaginal Hysterectomy with Bilateral Salpingectomy Estephania Dickinson MD Postoperative day: 1 Postoperative status: doing well Postoperative plan: routine post-op care and discharge Time Spent With Patient Time: Total time spent is greater than 50% in coordination of care (as documented) at patient's floor/unit and/or counseling patient: Time with patient: less than 15 minutes JEWELRY SALES COORDINATOR- PN:Subj Post-Op Subjective Date/time seen: 05/19/23 08:50 Interval history: POD#1 Judy reports doing well today. No issues overnight, last vomited at 5pm. Her pain is controlled with PO meds. She has tolerated some crackers; just ordered breakfast. She reports light vaginal spotting. She has voided. She has not passed flatus. She has ambulated and denies any symptoms of anemia. Review of Systems Review of Systems: All systems reviewed & are unremarkable except as noted in HPI and below (HPI) Constitutional: Constitutional: Denies chills, Denies fever(s) and Denies headache(s) Eyes: Eyes: Denies change in vision ENT: Denies dizziness and Denies headache(s) Cardiovascular: Cardiovascular: Denies chest pain and Denies rapid heart rate Respiratory: Respiratory: Denies cough Gastrointestinal: Gastrointestinal: Reports belching, Denies nausea and Denies vomiting Genitourinary: Genitourinary: Denies abnormal vaginal bleeding Neurologic: Denies dizziness and Denies headache(s) Exam Const: General: cooperative, comfortable, no acute distress and obese Orientation/consciousness: patient oriented x3 Resp: Effort & Inspection: normal respiratory effort Auscultation: clear to auscultation bilaterally Cardio: Rate: regular rate GI: Inspection: normal to inspection and incision (LSC incisions c/d/i) GI Palp: Yes abdominal tenderness (appropriate) and Yes Soft to palpation Auscultation: normal bowel sounds : Other: normal bleeding on pad Skin: General skin exam: normal color Neuro: General: patient oriented x3 Psych: Appearance: grossly normal Affect: normal affect Attitude: cooperative JEWELRY SALES COORDINATOR - PN: Obj Data Vital Signs Vital Signs: Vital Signs - 24 hr 05/18/23 10:30 05/18/23 10:45 05/18/23 11:00 Temperature 98.1 F Pulse Rate 87 87 78 Respiratory Rate 10 L 16 16 Blood Pressure 105/67 108/61 109/62 Pulse Oximetry 99 99 99 Oxygen Delivery Simple Face Mask Simple Face Mask Simple Face Mask Oxygen Flow Rate 7 5 5 05/18/23 11:15 05/18/23 11:30 05/18/23 11:45 Temperature Pulse Rate 73 76 75 Respiratory Rate 16 16 16 Blood Pressure 110/61 126/51 L 116/68 Pulse Oximetry 99 99 97 Oxygen Delivery Simple Face Mask Room Air Room Air Oxygen Flow Rate 5 05/18/23 12:00 05/18/23 12:15 05/18/23 12:37 Temperature 98 F Pulse Rate 73 70 74 Respiratory Rate 16 16 16 Blood Pressure 127/72 130/71 109/53 L Pulse Oximetry 97 97 98 Oxygen Delivery Room Air Room Air Oxygen Flow Rate 05/18/23 13:00 05/18/23 20:50 05/18/23 19:20 Temperature 98.8 F Pulse Rate 74 95 Respiratory Rate 16 48 H Blood Pressure 125/81 Pulse Oximetry 98 98 97 Oxygen Delivery Room Air CPAP Oxygen Flow Rate 05/18/23 19:20 05/19/23 05:16 05/19/23 05:16 Temperature 99.2 F Pulse Rate 81 81 Respiratory Rate 18 18 Blood Pressure 101/57 L Pulse Oximetry 98 98 Oxygen Delivery CPAP CPAP Oxygen Flow Rate Intake/Output Intake/Output: Intake & Output 05/16/23 05/17/23 05/18/23 05/19/23 23:59 23:59 23:59 23:59 Intake Total 2006 Output Total 1975 Balance 32 Meds/Results Medications: Active Medications Generic Name Dose Route Start Last Admin Trade Name Freq PRN Reason Stop Dose Ad
== END 2023-05-19 11:15 | disposition home or self-care (01) ==
LOC: ANHSURGERY 10:27 → ANHOB2 13:44
PROVIDERS: PCP Family Medicine; Visit Provider Obstetrics & Gynecology
PROC: (CPT 58571; principal; 2023-05-18 07:30)
DX: D25.1 Intramural leiomyoma of uterus (principal); N83.11 Corpus luteum cyst of right ovary; N93.9 Abnormal uterine and vaginal bleeding, unspecified; N73.6 Female pelvic peritoneal adhesions (postinfective); E78.5 Hyperlipidemia, unspecified; F41.9 Anxiety disorder, unspecified; I05.9 Rheumatic mitral valve disease, unspecified; G47.33 Obstructive sleep apnea (adult) (pediatric); J30.2 Other seasonal allergic rhinitis; E66.9 Obesity, unspecified; Z68.35 Body mass index [BMI] 35.0-35.9, adult; Z80.3 Family history of malignant neoplasm of breast; Z80.0 Family history of malignant neoplasm of digestive organs; Z79.82 Long term (current) use of aspirin
CPT/HCPCS: 58571; S2900; 36415; 86850; 86900; 86901; 88307; 93005; 99199; A9270; J0330; J0690; J1100; J1170; J1836; J1885; J2250; J2405; J2704; J2765; J3010; J7030; J7120

== ENCOUNTER 2024-03-06 16:53 | Outpatient (CLI) | payer OTHER, SELFPAY ==
--- NOTE | ~2024-03-06 | MM_ITS ---
EXAMINATION: MM screening [facility] BI w brayden HISTORY: Screening TECHNIQUE: Craniocaudal and mediolateral oblique 3-D tomosynthesis images were obtained and synthetic 2-D images were generated. CAD analysis was submitted and interpreted. COMPARISON: Comparison to multiple prior studies sequentially, with oldest reviewed study dated 05/05. BREAST PARENCHYMAL COMPOSITION: Not dense: There are scattered areas of fibroglandular density. FINDINGS: There is no evidence of suspicious mass, calcification, or architectural distortion to sugg est malignancy in either breast. There has been no suspicious interval change. IMPRESSION: 1. No mammographic evidence of malignancy. 2. Recommend routine screening mammography in one year. BI-RADS Category 1: Negative Reviewed, dictated and finalized at location B.
== END 2024-03-06 16:54 | disposition home or self-care (01) ==
LOC: ANHIMG 16:55
PROVIDERS: PCP Family Medicine; Visit Provider Registered Nurse
DX: Z12.31 Encounter for screening mammogram for malignant neoplasm of breast (principal)
CPT/HCPCS: 77063; 77067

== ENCOUNTER 2025-04-27 15:28 | Outpatient (CLI) | payer OTHER, SELFPAY ==
--- NOTE | ~2025-04-27 | MM_ITS ---
EXAMINATION: MM screening [facility] BI w brayden HISTORY: Screening TECHNIQUE: Craniocaudal and mediolateral oblique 3-D tomosynthesis images were obtained and synthetic 2-D images were generated. CAD analysis was submitted and interpreted. COMPARISON: 03/06/2024 BREAST PARENCHYMAL COMPOSITION: There are scattered areas of fibroglandular density. FINDINGS: There is no evidence of suspicious mass, calcification, or architectural distortion to suggest malignancy. There has been no suspicious interval change. IMPRESSION: 1. No mammographic evidence of malignancy. Recommend routine screening mammography in one year. BI-RADS Category 2: Benign finding(s) Reviewed, dictated and finalized at location Q. IMPRESSION: 1. No mammographic evidence of malignancy. Recommend routine screening mammogra phy in one year. BI-RADS Category 2: Benign finding(s)
== END 2025-04-27 15:29 | disposition home or self-care (01) ==
LOC: ANHFOHIMG 15:29
PROVIDERS: PCP Family Medicine; Visit Provider Nurse Practitioner Obstetrics & Gynecology
DX: Z12.31 Encounter for screening mammogram for malignant neoplasm of breast (principal)
CPT/HCPCS: 77063; 77067